=== PATIENT | female | born 1940 | race Caucasian/White ===

== ENCOUNTER 2020-04-06 08:36 | Day surgery (SDC) | payer MEDICARE, OTHER ==
[~2020-04-06 08:36] MED LIST: Acetaminophen 325 MG Tab PO SCH; Lidocaine 1% 4 ML ONE; Lidocaine 1%/Sod Bicarbonate in NS 8.4% 1 ML Syringe IDERM PRN; Morphine 8 MG, EPINEPHrine 0.3 MG, Cefuroxime 750 MG, Ketorolac 30 MG, Sodium Chloride ... PRN; Pregabalin 25 MG Cap PO SCH; Propofol 200 MG/20 ML SDV ONE; Sodium Chloride 0.9% 10 ML Syringe FLUSH PRN; ceFAZolin 1 GM Vial ONE; fentaNYL 100 MCG/2 ML SDV ONE; oxyCODONE ER 10 MG TAB.ER PO SCH
[2020-04-06] MEDS ORDERED: Bupivacaine 0.25% 10 ML SDV ONE (08:46)
[2020-04-06] MEDS ORDERED: Vancomycin 1 GM SDV ONE (08:46)
[2020-04-06] MEDS: Lactated Ringers 1,000 ML IV SCH ×2 (08:50→12:26)
--- NOTE | 2020-04-06 08:51 | PCM.PREANE ---
Preanesthetic Assessment - Procedure Proposed Procedure: right total knee arthroplasty - Anesthesia/Transfusion/Family Hx Anesthesia History: Prior Anesthesia Without Reaction Family History of Anesthesia Reaction: No Transfusion History: No Prior Transfusion(s) - Review of Systems General: No Symptoms Pulmonary: No Symptoms Cardiovascular: Dyspnea on Exertion Gastrointestinal: No Symptoms Neurological: No Symptoms Other: Reports: None - Physical Assessment NPO Status Date: 04/05/20 NPO Status Time: 00:00 Height: 1.57 m Weight: 78.4 kg ASA Class: 2 Mental Status: Alert & Oriented x3 Airway Class: Mallampati = 1 Dentition: Reports: Dentures (top), Partial Thyro-Mental Finger Breadths: 3 Mouth Opening Finger Breadths: 3 ROM/Head Extension: Full Lungs: Clear to Auscultation, Normal Respiratory Effort Cardiovascular: Regular Rate, Regular Rhythm - Lab Values: Laboratory Last Values MRSA (PCR) Negative 03/25/20 13:56 - Allergies Allergies/Adverse Reactions: Allergies Allergy/AdvReac Type Severity Reaction Status Date / Time cats Allergy Shortness Uncoded 04/03/20 08:27 of Breath - Anesthesia Plan Pre-Op Medication Ordered: None - Acknowledgements Anesthesia Type Planned: Spinal, Regional Block (femoral block at adductor canal for post-op pain control) Pt an Appropriate Candidate for the Planned Anesthesia: Yes Alternatives and Risks of Anesthesia Discussed w Pt/Guardian: Yes Pt/Guardian Understands and Agrees with Anesthesia Plan: Yes PreAnesthesia Questionnaire HEENT History: Reports: Impaired Vision, Other (See Below) Other HEENT History: Tinitus, Dentures/Partials Cardiovascular History: Reports: High Cholesterol, Hypertension Respiratory History: Reports: PE Genitourinary History: Reports: Other (See Below) Other Genitourinary History: Hematuria Other OB/BYN History: 5 pregnancies Musculoskeletal History: Reports: Osteoarthritis, RA Other Psychiatric History: Patient's oldest son has in February 2020 - concerns with depression and saddness after surgery. Oncologic (Cancer) History: Reports: Basal Cell Carcinoma - Past Surgical History HEENT Surgical History: Reports: Cataract Surgery, Tonsillectomy Cardiovascular Surgical History: Reports: None GI Surgical History: Reports: Colonoscopy Female Surgical History: Reports: Cystoscopy Endocrine Surgical History: Reports: None Musculoskeletal Surgical History: Reports: Other (See Below) Other Musculoskeletal Surgeries/Procedures:: Right Carpal Tunnel Release Oncologic Surgical History: Reports: None Dermatological Surgical History: Reports: None - SUBSTANCE USE Tobacco Use Status *Q: Former Tobacco User Tobacco Use Within Last Twelve Months: No Second Hand Smoke Exposure: No Days Per Week of Alcohol Use: 0 Number of Drinks Per Day: 0 Total Drinks Per Week: 0 Recreational Drug Use History: No - HOME MEDS Home Medications: Home Meds Benazepril/Hydrochlorothiazide [Benazepril-Hctz 20-12.5 mg Tab] 1 tab PO DAILY 04/03/20 [History] Cholecalciferol (Vitamin D3) [Vitamin D3] 5,000 unit PO DAILY 04/03/20 [History] Rosuvastatin [Crestor] 10 mg PO DAILY 04/03/20 [History] Tylenol With Sleep Aid 1,000 mg PO BEDTIME 04/03/20 [History] Apixaban [Eliquis] 2.5 mg PO BID #28 tablet 04/06/20 [Rx] oxyCODONE 5 - 10 mg PO Q6H PRN #40 tab 04/06/20 [Rx] - CURRENT (IN HOUSE) MEDS Current Meds: Current Medications Acetaminophen (Tylenol) 975 mg PO ONETIME BRYAN Stop: 04/06/20 18:00 Morphine Sulfate 8 mg/Epinephrine HCl 0.3 mg/Cefuroxime Sodium 750 mg/Ketorolac Tromethamine 30 mg/Sodium Chloride 7.9 ml 0 mg .XX ASDIRECTED PRN PRN Reason: Pain Stop: 04/06/20 18:00 Lactated Ringer's (Ringers, Lactated) 1,000 mls @ 125 mls/hr IV ASDIRECTED BRYAN Stop: 04/06/20 23:00 Lidocaine/Sodium Bicarbonate (Buffered Lidocaine 1% In Ns 8.4%) 0.25 ml IDERM ONETIME PRN PRN Reason: Prior to IV Start Stop: 04/06/20 18:00 Oxycodone HCl (Oxycontin) 10 mg PO ONETIME BRYAN Stop: 04/06/20 18:00 Pregabalin (Lyrica) 50 mg PO ONETIME BRYAN Stop: 04/06/20 18:00 Sodium Chloride (Saline Flush) 10 ml FLUSH ASDIRECTED PRN PRN Reason: Keep Vein Open Stop: 04/06/20 18:00 Discontinued Medications Cefazolin Sodium (Ancef) Confirm Administered Dose 2 gm .ROUTE .STK-MED ONE Stop: 04/06/20 08:19 Fentanyl (Sublimaze) Confirm Administered Dose 100 mcg .ROUTE .STK-MED ONE Stop: 04/06/20 08:18 Lidocaine HCl (Xylocaine-Mpf 1%) Confirm Administered Dose 4 mls @ as directed .ROUTE .STK-MED ONE Stop: 04/06/20 08:18 Propofol (Diprivan 20 Ml) Confirm Administered Dose 200 mg .ROUTE .STK-MED ONE Stop: 04/06/20 08:18
[2020-04-06] MEDS ORDERED: Lactated Ringers 1,000 ML ONE (10:21)
[2020-04-06] MEDS ORDERED: Propofol 200 MG/20 ML SDV ONE ×2 (10:37→11:04)
--- NOTE | 2020-04-06 11:37 | PCM.POSTAN ---
POST ANESTHESIA ASSESSMENT - MENTAL STATUS Mental Status: Alert, Oriented - VITAL SIGNS Vital Signs: Last Vital Signs Temp 36.8 C 04/06/20 08:35 Pulse 91 04/06/20 08:35 Resp 16 04/06/20 08:35 BP 123/84 04/06/20 08:35 Pulse Ox 95 04/06/20 08:35 - RESPIRATORY Respiratory Status: Respiratory Rate WNL, Airway Patent, O2 Saturation Stable - CARDIOVASCULAR CV Status: Pulse Rate WNL, Blood Pressure Stable - GASTROINTESTINAL GI Status: No Symptoms - PAIN Pain Score: 0 - POST OP HYDRATION Hydration Status: Adequate & Stable - OBSERVATIONS Free Text/Narrative:: no anesthesia complications noted
[2020-04-06] MEDS ORDERED: EPINEPHrine 1 MG/ML SDV ONE (11:44)
[2020-04-06] MEDS ORDERED: Ropivacaine 0.5% 5 MG/ML 30 ML SDV ONE (11:45)
--- NOTE | 2020-04-06 12:05 | PCM.SN.2 ---
- Free Text/Narrative Note: Right selective femoral nerve block at the adductor canal for post-procedure pain control under US guidance requested by Dr. Oconnell. Time Out: 1149 Start: 1149 End: 1159 Chart reviewed. Consent signed. Questions answered. Appropriate monitors applied. Time out performed. Right mid-shaft femur identified with ultrasound, scanning medially of femur, the femoral artery in the adductor canal visualized, and the femoral nerve located laterally to the artery. The skin was prepped lateral to the ultrasound probe with chlorahexadine times two. The 21ga 4 insulated block needle was inserted under direct ultrasound guidance into the adductor canal. 25 mL of 0.5% ropivacaine with 1:200,000 epinephrine was injected circumferentially around the nerve with intermittent negative aspiration noted. Patient tolerated the procedure well. Sterile technique noted along with sterile gloves, mask, and sterile probe cover. See picture on progress note and vital signs on nurses notes. Block completed in PACU. Joe Ruelas CRNA
[2020-04-06] MEDS ORDERED: oxyCODONE 5 MG Tab PO PRN (12:56)
--- NOTE | 2020-04-06 14:35 | PCM48HPAN ---
Post Anesthesia Note - EVALUATION WITHIN 48HRS OF ANESTHETIC Vital Signs in Normal Range: Yes Patient Participated in Evaluation: Yes Respiratory Function Stable: Yes Airway Patent: Yes Cardiovascular Function Stable: Yes Hydration Status Stable: Yes Pain Control Satisfactory: Yes Nausea and Vomiting Control Satisfactory: Yes Mental Status Recovered: Yes Vital Signs: Last Vital Signs Temp 36.8 C 04/06/20 12:45 Pulse 65 04/06/20 14:00 Resp 15 04/06/20 14:00 BP 102/71 04/06/20 14:00 Pulse Ox 98 04/06/20 14:00
--- NOTE | 2020-04-06 15:24 | CR ---
PROCEDURE INFORMATION: Exam: XR Right Knee Exam date and time: 04/06/2020 11:51 AM Age: 80 years old Clinical indication: Device placement; Joint replacement hardware; Additional info: Post-op right total knee replacement films TECHNIQUE: Imaging protocol: XR Right knee. Views: 1 or 2 views. COMPARISON: CR Bone Length Scanogram, Knee 3V Rt, Knee Standing AP Bi 03/25/2020 12:59 PM FINDINGS: Bones/joints: Total knee replacement. There is no evidence of acute fracture.. There is no evidence of malalignment or dislocation. Soft tissues: Normal. Other findings: Air in the the suprapatellar joint consistent with recent surgery versus infection. IMPRESSION: 1. Total knee replacement. 2. There is no evidence of acute fracture.. 3. There is no evidence of malalignment or dislocation. 4. Air in the the suprapatellar joint consistent with recent surgery versus infection. Thank you for allowing us to participate in the care of your patient. Dictated and Authenticated by: Toi Knox MD 04/06/2020 1:54 PM Central Time ([place] & [place]) [facility]
--- NOTE | 2020-04-20 10:43 | PCM.OPNOTE ---
- General Post-Op/Procedure Note Date of Surgery/Procedure: 04/06/20 Operative Procedure(s): right total knee arthroplasty Pre Op Diagnosis: right knee osteoarthrosis Post-Op Diagnosis: Same Anesthesia Technique: Local, MAC, Spinal Primary Surgeon: Francisco Oconnell Anesthesia Provider: Joe Ruelas Emt P: Fela Hdez Emt P: Trinh Salamanca in mLs: 5 Complications: None Condition: Good Free Text/Narrative:: 4 femur 3 tibia 9mm TS 29x9
--- NOTE | 2020-04-20 14:39 | OR ---
DATE OF OPERATION: 04/06/2020 SURGEON: Francisco Oconnell MD OPERATION PERFORMED: Right total knee arthroplasty. PREOPERATIVE DIAGNOSIS: Right knee osteoarthrosis. POSTOPERATIVE DIAGNOSIS: Right knee osteoarthrosis. ANESTHESIA: Local MAC with spinal. ANESTHESIA PROVIDER: Joe Ruelas CRNA ASSISTANTS: Fela Hdez PA-C and Trinh Salamanca LPN ESTIMATED BLOOD LOSS: 5 mL. COMPLICATIONS: None. CONDITION: Stable. IMPLANTS: 1. Champion size 4 cemented PS femur. 2. Biju size 3 cemented [place] tibial base plate. 3. Champion size 3, 9 mm TS polyethylene insert. 4. Biju size 29 x 9 mm cemented asymmetric patella. DESCRIPTION OF PROCEDURE: The patient was identified in the preop holding area. Proper site was marked and identified by the surgeon. The patient was taken back to the operating theater. After adequate anesthesia, the patient's right lower extremity had a nonsterile tourniquet applied and it was sterilely prepped and draped in the usual sterile fashion. OR time-out was performed. The patient received 2 g IV Ancef. At this time, the right lower extremity was exsanguinated. Tourniquet was insufflated to 300 mmHg. Standard medial parapatellar incision was made. Medial parapatellar arthrotomy was created. Deep fibers of the MCL were raised and anterior fat pad was resected. At this time, attention was turned to the patella. Patella measured 21, it was resected to a 13 for a 29 x 9 mm patella. Drill holes were then drilled and found to be in adequate position. The drill was then drilled in the distal femur and the intramedullary distal femoral cutting guide was then placed. 8 mm was resected off the distal femur and was found to be an adequate resection. Sizing guide was placed. It was found to be a size 4 cemented PS femur that was shown on the implant record at the beginning of this dictation. The drill holes were drilled for the epicondylar axis using Whitesides line and epicondyles as reference. At this time, the 4-in-1 cutting block was placed. An anterior posterior and anterior and posterior chamfer cuts were then completed. Box cut was completed at this time. Attention was turned to the tibia. The posterior medial lateral retractors were placed. The extramedullary tibial guide was placed. It was placed in the old footprint of the ACL. It was aligned with the center of the ankle and 0 degrees of slope, 9 mm was then resected off the unaffected side. There was found to be an acceptable reduction. At this time, posterior osteophytes were removed along with medial and lateral meniscus. A trial implant was placed with a correct sized tibia that was mentioned at the beginning of the dictation. A Champion size 3, 9 mm TS polyethylene insert was then placed. The patient's knee was brought through range of motion. The patella was tracking centrally and was stable to varus and valgus stress. Alignment was found to be roughly at 0 degrees. The tibia was stamped and drilled in proper rotation. The universal tibial base plate was impacted in place. Next, the Champion size 4 cemented PS femur impacted into place and the Biju size 3, 9 mm TS polyethylene insert was placed. The patient's knee was brought into full extension. The patella was then cemented in place at this time. One liter Irricept solution was irrigated through the knee along with 1 L of pulse lavage irrigation with Ancef. Periarticular injection was then completed. The patient's knee was brought through a range of motion. Once the cement had time to set up and it was found to be stable to varus valgus stress, the patella was tracking centrally with full range of motion. At this time, a #2 barbed suture was used for closure of the medial parapatellar arthrotomy. Topical tranexamic acid was placed. 2-0 Vicryl was used subcutaneously, Prineo was used for the skin. The patient tolerated the procedure well and was sent to the PACU in stable condition. MMODAL /[id number] JULY
== END 2020-04-06 17:25 | disposition home or self-care (01) ==
LOC: JD.SDS 08:36
PROVIDERS: ATTEND Orthopaedic Surgery
DX: M17.11 Unilateral primary osteoarthritis, right knee (principal); I10 Essential (primary) hypertension; I26.99 Other pulmonary embolism without acute cor pulmonale; Z79.899 Other long term (current) drug therapy; E78.5 Hyperlipidemia, unspecified; Z87.891 Personal history of nicotine dependence
CPT/HCPCS: 27447; 36415; 73560; 85610; 87641; 97110; 97116; 97161; 97165; A9270; C1713; C1776; J0171; J0690; J0697; J1885; J2001; J2270; J2370; J2704; J2795; J3010; J3370; J3490; J7120; 01402; 64450